=== PATIENT | male | born 1955 | race Caucasian/White ===

== ENCOUNTER → 2024-04-19 | Outpatient (CLI) | payer MEDICARE, MEDICAID ==
[~2024-04-19] MED LIST: APIX5TAB PO; ASPI-1406 PO; CLOP-31 PO; FURO-151 MT; ISOS60TA76 PO; LIP40 PO; METO25TA6 PO; POTA8TAB70 PO; REGADENOSON 0.4 MG/5 ML IV ONE
== END | disposition home or self-care (01) ==
LOC: RAD 08:10
PROVIDERS: ATTEND Internal Medicine
DX: I49.5 Sick sinus syndrome (principal)
CPT/HCPCS: 78452; 93017; J2785; A9500